=== PATIENT | female | born 1940 | race Caucasian/White ===

== ENCOUNTER 2016-10-15 14:12 | Outpatient (CLI) | payer MEDICARE, OTHER ==
--- NOTE | 2016-10-15 14:36 | RAD ---
CHEST 1 VIEW AND ABDOMEN 2 VIEWS: HISTORY: Abdominal pain. FINDINGS/IMPRESSION: The heart size is normal. The lungs are well expanded without focal areas of consolidation, pneumot horax, or pleural effusions. No free air or differential fluid levels are identified. The bowel ga s pattern is unremarkable. No suspicious calcifications are seen. There are mild degenerative españa ges in the spine. POS: [facility]
== END 2016-10-15 14:13 | disposition home or self-care (01) ==
LOC: MADRAD 14:12
PROVIDERS: ATTEND Family Medicine
DX: K59.01 Slow transit constipation (principal); R10.9 Unspecified abdominal pain
CPT/HCPCS: 74022

== ENCOUNTER 2023-04-01 14:37 | Outpatient (CLI) | payer MEDICARE | END 2023-04-01 14:38 | disposition home or self-care (01) | LOC: MADRAD 14:37 | PROVIDERS: ATTEND Physician Assistant Surgical | DX: M47.12 Other spondylosis with myelopathy, cervical region (principal) | CPT/HCPCS: 72050 ==